=== PATIENT | female | born 1995 | race Caucasian/White ===

== ENCOUNTER 2017-03-23 09:40 | Emergency (ER) | payer OTHER ==
[~2017-03-23] VITALS: Ht 162.6 cm; Wt 67.3 kg
[~2017-03-23 09:40] MED LIST: BCPILLS PO; IBUP-1050 PO; RIZA10TA21 PO
[2017-03-23 09:44] VITALS: TEMP 36.8; Ht 162.6 cm; Wt 67.3 kg
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
[2017-03-23] MEDS ORDERED: CITA10TA4 PO (10:11)
[2017-03-23] MEDS ORDERED: TPM25 PO (10:11)
--- NOTE | 2017-03-23 10:24 | DIAGNOSTIC IMAGING REPORT ---
HEAD WITHOUT CONTRAST (CT) CLINICAL HISTORY: 22 years-old Female with fell, facial impact. Acute fall with facial trauma TECHNIQUE: Multiple axial CT images of the head were obtained without contrast. A dose lowering technique was utilized adhering to the principles of ALARA. CT DOSE: 743.56 mGy.cm COMPARISON: CT maxillofacial same day. FINDINGS: No acute intracranial hemorrhage, midline shift, intracranial mass, hydrocephalus, territorial ischemia or abnormal extra-axial collection. The calvarium is intact. The paranasal sinuses, mastoid air cells, and middle ear cavities are clear. IMPRESSION: No acute intracranial abnormality. The above report was generated using voice recognition software. It may contain grammatical, syntax or spelling errors. Electronically signed by: Alessandro Hendrickson M.D. 03/23/2017 10:23 AM Dictated Date/Time: 03/23/2017 10:20 AM
--- NOTE | 2017-03-23 10:33 | DIAGNOSTIC IMAGING REPORT ---
FACIAL BONES-MXILLOFAC WITHOUT CLINICAL HISTORY: 22 years-old Female presenting with fall, nasal deformity. Acute fall with nasal deformity. COMPARISON STUDY: CT head 03/23/2017 TECHNIQUE: High-resolution CT scan of the facial bones is performed. Images are reviewed in the axial, sagittal, and coronal planes. IV contrast was not administered for this examination. A dose lowering technique was utilized adhering to the principles of ALARA. FINDINGS: There is no evidence of facial bone fracture. The bony orbits are intact and the orbital contents are within normal limits. The zygomatic arches, nasal bones, and pterygoid plates are preserved. The maxilla and mandible are intact. Mild leftward bowing and spurring of the nasal septum. The mastoid air cells are clear. Mild mucosal thickening of the ethmoid air cells and inferior left maxillary sinus. The imaged calvarium and upper cervical spine are within normal limits. Partially imaged brain parenchyma is within normal limits. IMPRESSION: 1. No acute facial bone fracture or dislocation. 2. No significant soft tissue swelling. The above report was generated using voice recognition software. It may contain grammatical, syntax or spelling errors. Electronically signed by: Alessandro Hendrickson M.D. 03/23/2017 10:31 AM Dictated Date/Time: 03/23/2017 10:27 AM
[2017-03-23 11:03] VITALS: BP 109/68; PULSE 98; O2SAT 98
== END 2017-03-23 11:04 | disposition home or self-care (01) ==
LOC: C.EDB 09:42 → C.EDA 11:04
DX: S00.33XA Contusion of nose, initial encounter (principal); W19.XXXA Unspecified fall, initial encounter; Z87.828 Personal history of other (healed) physical injury and trauma; Z98.890 Other specified postprocedural states; Z79.899 Other long term (current) drug therapy